=== PATIENT | female | born 1950 | race Caucasian/White ===

== ENCOUNTER 2017-10-31 12:12 | Emergency (ER) | payer MEDICARE, BC ==
[~2017-10-31] VITALS: Ht 172.7 cm; Wt 52.2 kg
--- NOTE | 2017-10-31 12:30 | NUR ---
MSE DONE BY DR CUMMINGS AT BEDSIDE.
[2017-10-31] MEDS ORDERED: AZITHROMYCIN 250 MG TABLET ONE (12:39)
[2017-10-31 12:41] VITALS: BP 105/55
--- NOTE | 2017-10-31 12:41 | NUR ---
Patient discharged to home in stable conditon. Written and verbal after care instructions given. Patient verbalizes understanding of instructions.
[2017-10-31] MEDS ORDERED: AZITHROMYCIN 250 MG TABLET PO ONE (12:45)
== END 2017-10-31 12:47 | disposition home or self-care (01) ==
LOC: ER 12:16
DX: J02.9 Acute pharyngitis, unspecified (principal); Z88.0 Allergy status to penicillin
CPT/HCPCS: A4663; Q0144

== ENCOUNTER 2018-04-02 07:44 | Emergency (ER) | payer MEDICARE, BC ==
[~2018-04-02] VITALS: Ht 172.7 cm; Wt 52.2 kg
--- NOTE | 2018-04-02 08:05 | NUR ---
Patient is AOX4, c/o right sided lip pains. The pains woke this patient up this morning- no provoking factors, +sharp pains, radiates to right side of the face especially R periorbital area, 7-8/10 pain scale, constant in nature but the intensity decreased after taking acetaminophen this am. Patient says that she recently had "fillers" injected to her face about 6 days ago in a [facility].
[2018-04-02] MEDS ORDERED: TRAMADOL HCL 50 MG TABLET ONE (08:37)
--- NOTE | 2018-04-02 08:37 | NUR ---
Patient and MD notified re: The [facility]'s automated EMERGENCY TELEPHONE CALLS & MESSAGES will be retrieved and checked in 2-3 hours by an on-call cadd technician.
[2018-04-02] MEDS ORDERED: TRAMADOL HCL 50 MG TABLET PO ONE (08:45)
--- NOTE | 2018-04-02 08:51 | NUR ---
Patient is resting comfortably on gurney while reading a newspaper.
--- NOTE | 2018-04-02 09:06 | NUR ---
Patient discharged to home in stable conditon. Written and verbal after care instructions given to patient. Patient verbalizes understanding of instructions. Patient left ER with brisk steady gait.
== END 2018-04-02 09:08 | disposition home or self-care (01) ==
LOC: ER 07:44
DX: G50.0 Trigeminal neuralgia (principal); Z88.0 Allergy status to penicillin
CPT/HCPCS: A4663

== ENCOUNTER 2021-09-27 01:46 | Emergency (ER) | payer MEDICARE, BC ==
[~2021-09-27] VITALS: Ht 165.1 cm; Wt 61.2 kg
--- NOTE | 2021-09-27 02:02 | NUR ---
Dr Norman at bedside, MSE in progress.
[2021-09-27] MEDS ORDERED: CELE200C PO (02:04)
[2021-09-27] MEDS ORDERED: LEVO100T10 PO (02:04)
[2021-09-27] MEDS ORDERED: TDAP DIPH,PERTUSS,TET VAC/PF 0.5 ML DISP.SYRIN IM ONE ×2 (02:15→02:36)
[2021-09-27 02:41] LABS: HEMATOCRIT 36.4 % (31.2-41.9); MEAN CORPUSCULAR HEMOGLOBIN 30.4 uug (24.7-32.8); MEAN CORPUSCULAR VOLUME 90.4 fL (75.5-95.3); PLATELET COUNT (AUTO) 170 K/uL (179-408)
--- NOTE | 2021-09-27 02:47 | NUR ---
pt taken to CT via julia
[2021-09-27 03:22] LABS: CARBON DIOXIDE 26 mmol/L (21-32); CHLORIDE 106 mmol/L (98-107); CREATININE 0.9 mg/dL (0.6-1.3); GLUCOSE 112 mg/dL (74-106); POTASSIUM 3.8 mmol/L (3.5-5.1); UREA NITROGEN, BLOOD 28 mg/dL (7-18)
[2021-09-27] MEDS ORDERED: ONDANSETRON ODT 4 MG TAB.RAPDIS ONE (03:37)
[2021-09-27] MEDS ORDERED: ONDANSETRON ODT 4 MG TAB.RAPDIS SL ONE (03:45)
[2021-09-27] MEDS ORDERED: IV NS 1000 ML 1,000 ML IV ONE (03:45)
[2021-09-27] MEDS ORDERED: ONDA4TAB5 PO (04:04)
--- NOTE | 2021-09-27 04:40 | NUR ---
Patient discharged to home in stable condition. Written and verbal after care instructions given. Patient verbalizes understanding of instructions. Stressed follow up or return to ER for worsening s/s. pt ambulated with steady gait. denies pain. no SOB. no chest pain. AOx4
[2021-09-27 04:41] VITALS: BP 129/79
[2021-09-28] MEDS ORDERED: ONDA4TAB11 PO (13:17)
[2021-09-28] MEDS ORDERED: IBUP-1955 PO (13:17)
== END 2021-09-27 04:41 | disposition home or self-care (01) ==
LOC: ER 02:03
DX: S09.90XA Unspecified injury of head, initial encounter (principal); W18.39XA Other fall on same level, initial encounter; Y92.89 Other specified places as the place of occurrence of the external cause; S01.01XA Laceration without foreign body of scalp, initial encounter; E86.0 Dehydration; R55 Syncope and collapse; Z88.0 Allergy status to penicillin; Z85.828 Personal history of other malignant neoplasm of skin; E03.9 Hypothyroidism, unspecified; Z79.890 Hormone replacement therapy
CPT/HCPCS: 36415; 70450; 71045; 80048; 83735; 84484; 85025; 85379; 85730; 90471; 90715; 93005; 96360; 99285; J7040; Q0162

== ENCOUNTER 2021-09-28 10:26 | Emergency (ER) | payer MEDICARE, BC ==
[~2021-09-28] VITALS: Ht 165.1 cm; Wt 61.2 kg
[~2021-09-28 10:26] MED LIST: CELE200C PO; LEVO100T10 PO; ONDA4TAB5 PO
--- NOTE | 2021-09-28 10:36 | NUR ---
MSE by Dr Whitt in progress..
[2021-09-28] MEDS ORDERED: ACETAMINOPHEN ES 500 MG TABLET ONE (10:57)
[2021-09-28] MEDS ORDERED: ONDANSETRON 4 MG/2 ML VIAL ONE (10:58)
[2021-09-28] MEDS ORDERED: ONDANSETRON 4 MG/2 ML VIAL IV ONE (11:00)
[2021-09-28] MEDS ORDERED: IV NORMAL SALINE 1000 ML BAG IV ONE (11:00)
[2021-09-28] MEDS ORDERED: ACETAMINOPHEN ES 500 MG TABLET PO ONE (11:00)
[2021-09-28 11:08] LABS: HEMATOCRIT 35.9 % (31.2-41.9); MEAN CORPUSCULAR HEMOGLOBIN 30.7 uug (24.7-32.8); MEAN CORPUSCULAR VOLUME 90.7 fL (75.5-95.3); PLATELET COUNT (AUTO) 158 K/uL (179-408)
[2021-09-28 11:13] LABS: CREATININE 0.9 mg/dL (0.6-1.3); POTASSIUM 3.9 mmol/L (3.5-5.1)
--- NOTE | 2021-09-28 11:40 | NUR ---
Pt back from CT, resting in bed, NAD noted.
[2021-09-28 12:35] LABS: *BILIRUBIN,URIN NEGATIVE (NEGATIVE); *CLARITY,URINE CLEAR (CLEAR); *COLOR,URINE YELLOW (YELLOW); *KETONES,URINE NEGATIVE (NEGATIVE); *UROBILINOGEN,URINE 0.2 E.U./dl (NORMAL); LEUKOCYTE ESTERASE ,URINE 1+ (NEGATIVE); NITRITE, URINE NEGATIVE (NEGATIVE); PH,URINE 5.5 (5.0-8.0); UGLUCOSE NEGATIVE (NEGATIVE)
[2021-09-28 12:41] LABS: *BLOOD, URINE TRACE (NEGATIVE)
--- NOTE | 2021-09-28 13:15 | NUR ---
IV removed. Catheter intact and site benign. Pressure and 4x4 gauze applied to site. No bleeding noted.
[2021-09-28] MEDS ORDERED: IBUP-1955 PO (13:17)
[2021-09-28] MEDS ORDERED: ONDA4TAB11 PO (13:17)
--- NOTE | 2021-09-28 13:44 | NUR ---
Pt left ER W/ steady gait.
--- NOTE | 2021-09-28 13:44 | NUR ---
Patient discharged to home in stable condition. Written and verbal after care instructions given. Patient verbalizes understanding of instructions. Stressed follow up or return to ER for worsening s/s.
[2021-09-28 13:45] VITALS: BP 123/72
[2021-09-28 16:53] LABS: BACTERIA,URINE MODERATE /HPF (NONE SEEN); RBC,URINE 0-3 /HPF (0-3); SQUAMOUS EPITHELIAL CELL,UR FEW /HPF (NONE SEEN)
== END 2021-09-28 13:46 | disposition home or self-care (01) ==
LOC: ER 10:26
DX: R55 Syncope and collapse (principal); S06.0X9D Concussion with loss of consciousness of unspecified duration, subsequent encounter; T14.8XXD Other injury of unspecified body region, subsequent encounter; W18.30XD Fall on same level, unspecified, subsequent encounter; E86.0 Dehydration; E03.9 Hypothyroidism, unspecified; Z88.0 Allergy status to penicillin; Z85.828 Personal history of other malignant neoplasm of skin; M19.90 Unspecified osteoarthritis, unspecified site; Z79.899 Other long term (current) drug therapy; Z79.890 Hormone replacement therapy
CPT/HCPCS: 36415; 70450; 71045; 80048; 81001; 85025; 85730; 87086; 93005; 96361; 96374; 99285; J2405; J7040; 83735; 84484; A4663; A9150